=== PATIENT | female | born 1940 | race Caucasian/White ===

== ENCOUNTER 2017-04-07 23:53 | Inpatient (IN) | payer MEDICARE ==
[2017-04-08 01:34] LABS: #Lymphocytes 1.1 thou/uL (1.20-3.40); #Monocytes 0.3 thou/uL (0.11-0.59); #Neutrophils 7.8 thou/uL (1.40-6.50); %Basophils 0.2 % (0.0-1.0); %Eosinophils 0.1 % (0.0-10.0); %Lymphocytes 11.9 % (21.0-51.0); %Monocytes 3.7 % (0.0-10.0); %Neutrophils 84.1 % (42.0-75.0); Hemoglobin 11.8 g/dL (12.0-16.0); Mean Corpuscular HGB CONC 33.7 g/dL (32.0-36.0); Mean Corpuscular Hemoglobin 32.5 pg (27.0-31.0); Mean Corpuscular Volume 96.2 fl (81.0-99.0); Mean Platelet Volume 6.8 fL (7.4-10.4); Platelet Count 212 thou/uL (130-400); RBC Distribution Width 11.9 % (11.5-14.5); Red Blood Cell (RBC) Count 3.63 mill/uL (4.20-5.40); White Blood Cell (WBC) Count 9.2 thou/uL (4.8-10.8)
[2017-04-08 01:46] LABS: INR-International Normal Ratio 1.1; PTT 28.7 SEC (22.9-36.1); Prothrombin Time 13.9 SEC (12.0-14.7)
[2017-04-08 01:50] LABS: Anion Gap 10 mmol/L (10-20); BUN (Urea Nitrogen) 32 mg/dL (9.8-20.1); Calc. Creatinine Clearance 0 mL/min (70-130); Calcium 9.1 mg/dL (7.8-10.44); Carbon Dioxide 23 mmol/L (23-31); Chloride 109 mmol/L (98-107); Estimated GFR-MDRD 65; Glucose 122 mg/dL (83-110); Potassium 4.4 mmol/L (3.5-5.1); Sodium 138 mmol/L (136-145)
[2017-04-08 01:53] LABS: CKMB 1.9 ng/mL (0-6.6); Troponin I Less than 0.010 ng/mL (< 0.028)
[2017-04-08] MEDS ORDERED: Acetaminophen 325 MG TAB PO PRN ×2 (05:13→10:23)
[2017-04-08] MEDS ORDERED: Ondansetron ODT 4 MG TAB SL PRN (05:13)
[2017-04-08] MEDS ORDERED: Ondansetron HCl/PF 4 MG/2 ML Vial IVP PRN ×2 (05:13→10:23)
[2017-04-08] MEDS ORDERED: Pantoprazole 40 MG VIAL IVP SCH (05:15)
[2017-04-08 06:17] VITALS: BMI 34.8
[2017-04-08 11:44] LABS: Hemoglobin 12.2 g/dL (12.0-16.0)
[2017-04-08] MEDS: Dextrose 5 % And 0.9 % NaCl 1,000 ML IV SCH ×2 (12:13→21:04)
--- NOTE | 2017-04-08 14:03 | HP ---
REASON FOR ADMISSION: GI bleed. HISTORY OF PRESENTING ILLNESS: The patient gives history of having black stools from last 3 days. She wanted [place] to be over. Yesterday evening, she went out to eat and after a few minutes became very diaphoretic and vomited once in the parking lot. This concerned her and had mild colicky abdominal pain in the epigastric area. Finally, she went to [facility] from where she was transferred here. After arrival here, patient was given a unit of transfusion. It is unclear if she became hypotensive, but her hemoglobin on arrival was 13 and was 11.8 on arrival here. The patient had 1 more episode of vomiting which was black in color prior to her going to [facility]. PAST MEDICAL AND SURGICAL HISTORY: Prior history of peptic ulcer disease, 3 years back when she had upper endoscopy done by Dr. Ha in [place]. She has been on Protonix since then. She had upper endoscopy and capsule endoscopy done one year later by Dr. Mckeon for a drop in hemoglobin, but there are no abnormalities noticed on those tests per patient. Depression, anxiety disorder , hypothyroidism, mild hypertension, restless leg syndrome, scoliosis, history of migraines, appendectomy, hysterectomy, and nuclear stress test done in 2009 was within normal limits. ALLERGIES: Allergic to CIPROFLOXACIN and AUGMENTIN. CURRENT MEDICATIONS: Calcium 600 mg p.o. daily, flaxseed oil 1 gram daily, multivitamin 1 tablet daily, fluoxetine 10 mg daily, levothyroxine 75 mcg p.o. daily, Toprol-XL 25 mg daily, Protonix 40 mg p.o. daily, has run out from last 3 days, pramipexole 0.125 mg p.o. at bedtime p.r.n. for restless leg syndrome, simvastatin 20 mg daily. PERSONAL HISTORY: No history of smoking. Takes one drink of either wine of scotch on a daily basis. FAMILY HISTORY: Both parents lived up to 97 years. Mother has had CABG and CHF. Father has had history of colon cancer, CHF, diabetes. REVIEW OF SYSTEMS: The following complete review of systems was negative, unless otherwise mentioned in the HPI or below: Constitutional: Weight loss or gain, ability to conduct usual activities. Skin: Rash, itching. Eyes: Double vision, pain. ENT/Mouth: Nose bleeding, neck stiffness, pain, tenderness. Cardiovascular: Palpitations, dyspnea on exertion, orthopnea. Respiratory: Shortness of breath, wheezing, cough, hemoptysis, fever or night sweats. Gastrointestinal: Poor appetite, abdominal pain, heartburn, nausea, vomiting, constipation, or diarrhea. Genitourinary: Urgency, frequency, dysuria, nocturia. Musculoskeletal: Pain, swelling. Neurologic/Psychiatric: Anxiety, depression. Allergy/Immunologic: Skin rash, bleeding tendency. PHYSICAL EXAMINATION: GENERAL: The patient is a 76-year-old female who is currently not in any acute distress. VITAL SIGNS: Blood pressure 128/74, pulse 88 per minute, respiratory rate 16 per minute, temperature 98 degrees Fahrenheit, saturating 98% on room air. NECK: Supple, no elevated JVD. EYES: Extraocular muscles intact. Pupils reacting to light. ORAL CAVITY: Mucous membranes are moist. No exudates or congestion. CARDIOVASCULAR SYSTEM: S1, S2 heard. Regular rhythm. RESPIRATORY SYSTEM: Air entry 1+ bilaterally. No rales or rhonchi. ABDOMEN: Soft, bowel sounds heard. No tenderness, rigidity or guarding. EXTREMITIES: No peripheral edema or calf tenderness. VASCULAR SYSTEM: Peripheral pulses 1+ bilateral. No ischemic ulcerations or gangrene. CENTRAL NERVOUS SYSTEM: No gross focal deficits seen. Patient is alert, awake , oriented well. PSYCHIATRIC SYSTEM: The patient's mood is euthymic. No hallucinations or delusions. LABORATORY DATA AND X-RAY FINDINGS: Lab done at [facility] shows hemoglobin and hematocrit of 12 and 36. Repeat hemoglobin and hematocrit done here shows 11 and 34, platelet count is 212, white count of 9, with 84% neutrophils, MCV is 96. PT, INR, PTT within normal limits. Electrolytes are stable. BUN 32, creatinine 0.8, and glucose 122. Stool occult blood was positive at [facility]. One set of cardiac enzymes are negative. EKG done shows sinus tachycardia at 105 beats per minute, no gross ST-T wave changes. CLINICAL IMPRESSION AND PLAN: The patient will be admitted to telemetry for melena and what appears to be coffee ground emesis last night. Her hemoglobin and hematocrit has remained stable. Despite this, she has received 1 unit of packed cell overnight. She is kept n.p.o. for possible upper endoscopy by Dr. Mckeon. She will be on Prozac and Synthroid at her home dosage and will be on D5 normal saline at 100 mL per hour up until her endoscopy is done. We will continue to closely monitor her for any hemodynamic compromise. Currently, she is hemodynamically stable at present. [facility]ITAL[facility]lor[facility]
[2017-04-08 16:35] LABS: Hemoglobin 11.4 g/dL (12.0-16.0)
[2017-04-08] MEDS: Pantoprazole 80 MG in Sodium Chloride 0.9% 100 ML IVP SCH (19:39)
--- NOTE | 2017-04-08 22:51 | CON ---
DATE OF CONSULTATION: 04/08/2017 REASON FOR CONSULTATION: Melena, hematemesis. CONSULTING PHYSICIAN: Angel Perdomo M.D. HISTORY OF PRESENT ILLNESS: Patient is a 76-year-old female with past medical history of hypothyroidism, hyperlipidemia, hypertension, scoliosis, migraines, lung granuloma, and peptic ulcer disease presenting with complaints of melena. She states that approximately 3 days ago she started having dark, black-colored stools with semisolid to liquid consistency. She initially did nothing about this particular symptom, but over the last 24 hours she went out to eat and experienced diaphoresis and vomited in the parking lot with the emesis consisting of dark black material. This prompted her to seek professional healthcare assistance from [facility] where it was observed that she had melena as well as coffee ground emesis. She was subsequently given 1 unit of PRBCs and ultimately transferred to [facility] in [place] for further evaluation/intervention. Of note, she stopped her pantoprazole approximately 2 days ago and did take 2 Pepto-Bismol tablets yesterday, but had already had bouts of these black stools prior to administration. PAST MEDICAL HISTORY: See above HPI. PAST SURGICAL HISTORY: Appendectomy, hysterectomy. FAMILY HISTORY: Coronary artery disease/cardiac disease. Colon cancer (father) , CHF, diabetes. SOCIAL HISTORY: Denies tobacco or drug use. Takes one drink of either wine or scotch on a nearly daily basis. ALLERGIES: Allergic to CIPROFLOXACIN AND AUGMENTIN. REVIEW OF SYSTEMS: A 12 category review of systems was obtained with all of her responses negative except for the pertinent positives as listed in the HPI. OUTPATIENT MEDICATIONS: Calcium 600 mg daily, flaxseed oil 1 gram daily, multivitamin daily, Prozac 10 mg daily, levothyroxine 75 mcg daily, Toprol-XL 25 mg daily, pramipexole 0.125 mg at bedtime, simvastatin 20 mg at bedtime. INPATIENT MEDICATIONS: Reviewed. PHYSICAL EXAMINATION: VITAL SIGNS: Temperature 97.9, pulse 84, blood pressure 124/78, respiratory rate 16, satting 95% on room air. GENERAL: Patient in no acute distress, alert and oriented x4. HEENT: Pupils are equal and round, and reactive to light. Extraocular muscles intact. NECK: Supple, no JVD noted. CARDIOVASCULAR: Regular rate and rhythm with no discernible murmurs, gallops, or rubs. RESPIRATORY: Clear to auscultation bilaterally with no discernible wheezes or rales. ABDOMEN: Soft, nontender, nondistended, normoactive bowel sounds. No hepatosplenomegaly noted. EXTREMITIES: No cyanosis, clubbing, or edema. LABORATORY DATA: CBC with a white blood count of 9.2, hemoglobin of 11.8, hematocrit 34.9, platelets 212. Chemistry with a sodium of 138, potassium 4.4, chloride 109, carbon dioxide 23, BUN 32, creatinine 0.85, glucose 122. INR 1.1. ASSESSMENT AND PLAN: Patient is a 76-year-old female with past medical history of hypothyroidism, hyperlipidemia, hypertension, scoliosis, migraines, lung granuloma, and peptic ulcer disease presenting with complaints of coffee ground emesis and melena concerning for upper GI bleed. Upper GI bleeding Patient presenting with 3-day history of darker/black colored liquid stools without any dietary etiology. However, over the last 24-hours she has also experienced emesis of darker/coffee ground appearing vomitus in addition to repeated episodes of dark colored stools concerning for an upper GI bleeding source. She received approximately 1 unit of packed red blood cells overnight prior to transfer to [facility] with H&H responding appropriately. At this time, the differential is broad including esophagitis, peptic ulcer disease, AVM /Dieulafoy lesion, gastritis, Hudson's erosions, and/or malignancy (much less likely). RECOMMENDATIONS: 1. We would continue to trend H&H and transfuse as necessary to maintain an H& H of 7/21. 2. We would continue PPI drip for now until upper endoscopy can be obtained. 3. We will plan for upper endoscopy tomorrow (04/09/2017). Please make patient n.p.o. at midnight. [facility]
[2017-04-08 22:58] LABS: Hemoglobin 11.4 g/dL (12.0-16.0)
[2017-04-09] MEDS: Pantoprazole 80 MG in Sodium Chloride 0.9% 100 ML IVP SCH (05:07)
[2017-04-09] MEDS: Dextrose 5 % And 0.9 % NaCl 1,000 ML IV SCH (05:07)
[2017-04-09 05:20] LABS: #Eosinphils 0.1 thou/uL (0.0-0.7); #Lymphocytes 1.5 thou/uL (1.20-3.40); #Monocytes 0.3 thou/uL (0.11-0.59); %Basophils 1.1 % (0.0-1.0); %Eosinophils 2.6 % (0.0-10.0); %Lymphocytes 36.8 % (21.0-51.0); %Monocytes 7.9 % (0.0-10.0); %Neutrophils 51.6 % (42.0-75.0); Hemoglobin 11.1 g/dL (12.0-16.0); Mean Corpuscular HGB CONC 34.1 g/dL (32.0-36.0); Mean Corpuscular Hemoglobin 32.7 pg (27.0-31.0); Mean Platelet Volume 7.2 fL (7.4-10.4); Platelet Count 154 thou/uL (130-400); Red Blood Cell (RBC) Count 3.39 mill/uL (4.20-5.40); White Blood Cell (WBC) Count 3.9 thou/uL (4.8-10.8)
[2017-04-09 05:30] LABS: ALT (SGPT) 16 U/L (8-55); AST (SGOT) 20 U/L (5-34); Albumin 3.1 g/dL (3.4-4.8); Alkaline Phosphatase 49 U/L (40-150); Anion Gap 10 mmol/L (10-20); BUN (Urea Nitrogen) 13 mg/dL (9.8-20.1); Bilirubin, Total 0.3 mg/dL (0.2-1.2); Calc. Creatinine Clearance 86 mL/min (70-130); Calcium 8.2 mg/dL (7.8-10.44); Carbon Dioxide 21 mmol/L (23-31); Chloride 113 mmol/L (98-107); Estimated GFR-MDRD 72; Globulin 1.9 g/dL (2.4-3.5); Glucose 100 mg/dL (83-110); Potassium 3.9 mmol/L (3.5-5.1); Sodium 140 mmol/L (136-145)
[2017-04-09] MEDS ORDERED: Levothyroxine Sodium 75 MCG TAB PO SCH (06:00)
[2017-04-09] MEDS ORDERED: Promethazine HCl 25 MG/ML VIAL SLOW IVP PRN (08:21)
[2017-04-09] MEDS ORDERED: Ondansetron HCl/PF 4 MG/2 ML Vial IVP PRN (08:21)
[2017-04-09] MEDS ORDERED: Promethazine HCl 25 MG/ML VIAL IM PRN (08:21)
[2017-04-09] MEDS ORDERED: FLUoxetine HCl 20 MG CAP PO SCH (09:00)
--- NOTE | 2017-04-09 11:32 | PQF ---
CLINICAL DOCUMENTATION IMPROVEMENT CLARIFICATION FORM: ICD-10 Updated PLEASE DO AN ADDENDUM TO THE PROGRESS NOTE WITH ANY DOCUMENTATION UPDATES OR ADDITIONS AND CARRY THROUGH TO DC SUMMARY. THANK YOU. DATE: 04/09/17 ATTN: DR. GRADY Please exercise your independent, professional judgment in responding to the clarification form. Clinical indicators are provided on the bottom of this form for your review Please check appropriate box(s): [ x ] Acute blood loss anemia [ ] Anemia: [ ] Aplastic [ ] Nutritional [ ] Drug induced (specify) ___ [ ] Hemolytic [ ] Hereditary [ ] Acquired [ ] Autoimmune [ ] Non-autoimmune [ ] Enzyme disorder [ ] Chronic Anemia: [ ] Blood loss [ ] Hemolytic [ ] Simple [ ] Due to Vitamin B12 Deficiency [ ] Other [ ] Anemia of Chronic Disease (please specify) [ ] Anemia due to Neoplasm: [ ] Primary [ ] Secondary [ ] Anemia due to (please choose): [ ] Due to Chemotherapy [ ] Due to Radiotherapy [ ] Due to Immunotherapy [x ] Other diagnosis ____due to GI bleed [ ] Unable to determine In addition, please specify: Present on Admission (POA): [ ] Yes [ ] No [ ] Unable to determine For continuity of documentation, please document condition throughout progress notes and discharge summary. Thank You. CLINICAL INDICATORS - SIGNS / SYMPTOMS / LABS HGN 11.1 HCT 32.6 RISKS: GI BLEED TREATMENT: BLOOD TRANSFUSION SERIAL LABS GI CONSULT SAP Social Service Manager [employer] Reports Winform Viewer (This form is maintained as a part of the permanent medical record) 2014 [employer]. All Rights Reserved ML [email or web address] Office: [phone] [facility] CENTERGloria
--- NOTE | 2017-04-09 11:51 | OP ---
DATE OF PROCEDURE: 04/09/2017 PROCEDURE: EGD, diagnostic. DESCRIPTION OF PROCEDURE: After discussing the risks and benefits of the procedure with risks including bleeding, perforation, reaction, anesthesia, infection or pain, informed consent was obtained. The patient was then taken back to the endoscopy suite where deep sedation with propofol was administered via anesthesia support. The standard gastroscope was then advanced into the mouth with intubation of the esophagus, stomach and proximal small intestine with findings listed below. FINDINGS: DUODENUM: Normal appearing mucosa was seen in both the duodenal bulb and second portion of the duodenum. There was no evidence of erosions, ulcerations , active/recent bleeding, or mass lesions. STOMACH: Multiple linear erosions were seen in the proximal fundus extending longitudinally along the length of the stomach along the greater and lesser curvature. These erosions were also located within a large hiatal hernia consistent with Hudson's erosions. Minimal oozing of blood was noted along one particular erosion, but stopped spontaneously with direct visualization. There was no evidence of any ulceration along these particular erosions. Otherwise, the mucosa within the cardia, body, antrum and incisura was normal without any additional erosions, ulcerations, active/recent bleeding, or mass lesions. A large hiatal hernia was seen on gastric retroflexion. ESOPHAGUS: Normal appearing mucosa was seen in the proximal, mid and distal esophagus. The diaphragmatic pinch was seen at approximately 40 cm, while the GE junction was well seen at 33 cm denoting a 7 cm hiatal hernia. There was no evidence of erosions, ulcerations, active/recent bleeding, or mass lesions within the esophagus. IMPRESSION: 1. Large, 7 cm hiatal hernia. 2. Multiple Hudson's erosions associated with large hiatal hernia with minimal bleeding located along one of these erosions. This is the most likely source of the patient's recent hematemesis/melena. RECOMMENDATIONS: 1. Follow up with primary inpatient team. 2. Would continue patient on pantoprazole 40 mg b.i.d. but can be transferred to oral formulation. The patient will need to be on this medication indefinitely until the hiatal hernia is corrected. 3. We will continue to trend hemoglobin and hematocrit and transfuse as necessary to maintain an hemoglobin and hematocrit of 7/21. 4. We will consider surgical consultation for correction of the large hiatal hernia contributing to Hudson's erosions and recent upper GI bleeding. We will sign off at this time. Please call with any additional questions again. MTDD
[2017-04-09 12:12] VITALS: BP 145/84; TEMP 97.6
[2017-04-09] MEDS ORDERED: Propofol 200 MG/20 ML VIAL ONE (13:29)
--- NOTE | 2017-04-09 14:21 | PDOC.PN ---
- Subjective Encounter Start Date: 04/09/17 Encounter Start Time: 11:00 Subjective: feels good, had her EGD and wants to go home -: at bedside is insisting he wants to take her home - Objective Resuscitation Status: Resuscitation Status FULL:Full Resuscitation MAR Reviewed: Yes Vital Signs & Weight: Vital Signs (12 hours) Temp Pulse Resp BP Pulse Ox 04/09/17 11:30 97.6 F 84 16 145/84 H 98 04/09/17 08:50 97.5 F L 82 16 139/80 99 04/09/17 04:52 97.4 F L 83 16 130/82 96 Weight Admit Weight 190 lb 9.6 oz Weight 190 lb 9.6 oz I&O: 04/08/17 04/09/17 04/10/17 06:59 06:59 06:59 Intake Total 2298 Output Total 700 Balance 1598 Result Diagrams: 04/09/17 04:29 04/09/17 04:29 Phys Exam - Physical Examination HEENT: PERRLA, moist MMs Neck: no JVD, supple Respiratory: no wheezing, no rales Cardiovascular: RRR, no significant murmur Gastrointestinal: soft, non-tender, no distention, positive bowel sounds Musculoskeletal: no edema, pulses present Neurological: non-focal, moves all 4 limbs Psychiatric: A&O x 3 Dx/Plan (1) Gastrointestinal bleed Code(s): K92.2 - GASTROINTESTINAL HEMORRHAGE, UNSPECIFIED Status: Acute Comment: due to Hudson's lesions (2) HTN (hypertension) Code(s): I10 - ESSENTIAL (PRIMARY) HYPERTENSION Status: Chronic Qualifiers: Hypertension type: essential hypertension Qualified Code(s): I10 - Essential (primary) hypertension (3) Dyslipidemia Code(s): E78.5 - HYPERLIPIDEMIA, UNSPECIFIED Status: Chronic (4) Hypothyroidism Code(s): E03.9 - HYPOTHYROIDISM, UNSPECIFIED Status: Chronic Qualifiers: Hypothyroidism type: unspecified Qualified Code(s): E03.9 - Hypothyroidism , unspecified (5) Hiatal hernia Code(s): K44.9 - DIAPHRAGMATIC HERNIA WITHOUT OBSTRUCTION OR GANGRENE Status: Chronic (6) Acute blood loss anemia Code(s): D62 - ACUTE POSTHEMORRHAGIC ANEMIA Status: Acute Comment: initial Hb of 13g, post transfusion Hb is 11g - Plan hg around 11g -: EGD results noted -: d/w dileep Fitzpatrick dc home -: outpt gen surg consultation per GI advice -: protonix bid * .
--- NOTE | 2017-04-09 22:40 | DIS ---
DATE OF ADMISSION: 04/08/2017 DATE OF DISCHARGE: 04/09/2017 DISCHARGE DISPOSITION: To home. PRIMARY DISCHARGE DIAGNOSIS: Hudson ulcers with GI bleed. SECONDARY DISCHARGE DIAGNOSES: History of peptic ulcer disease, mild hypertension, depression and hy pothyroidism. PROCEDURES DONE DURING HOSPITALIZATION: The patient has had upper endoscopy done by Dr. Juan Antonio , which showed Hudson ulcers and a large hiatal hernia. H&H has remained stable around 11 and 32, p latelet count 154, albumin is 3.1. DISCHARGE MEDICATIONS: Protonix 40 mg p.o. twice daily, simvastatin 20 mg p.o. at bedtime, Lopressor extended release 25 mg daily, Synthroid 75 mcg p.o. daily, Prozac as before. ALLERGIES: AUGMENTIN and CIPROFLOXACIN. INPATIENT CONSULTS: Dr. Juan Antonio. BRIEF COURSE DURING HOSPITALIZATION: The patient initially got admitted with complaints of bleeding per rectum/black stools from the last 3 days. She also vomited one large coffee ground vomitus. In view of this history, she was admitted to telemetry. She was given 1 unit of packed cell on arrival. Her hemoglobin was 13 grams at [facility] ER where she initially went and was transfer red here. Post-transfusion, her hemoglobin has been trending around 11 grams. She has had upper end oscopy done by Dr. Juan Antonio. EGD showed large hiatal hernia with Hudson lesions. Likely cause for bleeding is that. She has remained hemodynamically stable and is wanting to go home. Please see a [id number] documentation for the day of discharge on [facility]. The patient can be discharged ho in if cleared by Dr. Juan Antonio.
--- NOTE | 2017-04-11 13:27 | EKG ---
Test Reason : Blood Pressure : / mmHG Vent. Rate : 105 BPM Atrial Rate : 105 BPM P-R Int : 130 ms QRS Dur : 068 ms QT Int : 340 ms P-R-T Axes : 037 005 029 degrees QTc Int : 449 ms Sinus tachycardia Otherwise normal ECG Confirmed by RAJEEV YOUNG ([id number]), editor school photograph GARO BRICENO ([id number]) on 04/11/2017 1:27:26 PM Referred By: Confirmed By:RAJEEV YOUNG
== END 2017-04-09 13:22 | disposition home or self-care (01) | DRG 378 ==
LOC: ERS 23:53 → 2NO 04-08 00:55
PROVIDERS: ADMIT Internal Medicine; ATTEND Internal Medicine
PROC: 30233N1 Transfusion of Nonautologous Red Blood Cells into Peripheral Vein, Percutaneous Approach (ICD-10-PCS; 2017-04-08)
PROC: 0DJ08ZZ Inspection of Upper Intestinal Tract, Via Natural or Artificial Opening Endoscopic (ICD-10-PCS; principal; 2017-04-09)
DX: K25.4 Chronic or unspecified gastric ulcer with hemorrhage (principal); D62 Acute posthemorrhagic anemia; J84.10 Pulmonary fibrosis, unspecified; M41.9 Scoliosis, unspecified; E03.9 Hypothyroidism, unspecified; I10 Essential (primary) hypertension; K44.9 Diaphragmatic hernia without obstruction or gangrene; F32.9 Major depressive disorder, single episode, unspecified; E78.5 Hyperlipidemia, unspecified
CPT/HCPCS: 36415; 36430; 80048; 80053; 82553; 84484; 85025; 85610; 85730; 86850; 86900; 86901; 93005; 96360; A4216; C9113; J2704; J7050; P9016